=== PATIENT | female | born 1980 | race Caucasian/White ===

== ENCOUNTER 2016-05-11 11:42 | Emergency (ER) | payer MEDICAID ==
[2016-05-11] MEDS ORDERED: OPTIRAY 350 100 ML VIAL HMH IV ONE (11:43)
== END 2016-05-11 15:51 | disposition home or self-care (01) ==
LOC: ER 11:42
DX: D17.1 Benign lipomatous neoplasm of skin and subcutaneous tissue of trunk (principal); R93.5 Abnormal findings on diagnostic imaging of other abdominal regions, including retroperitoneum
CPT/HCPCS: 71260